=== PATIENT | male | born 1980 | race Caucasian/White ===

== ENCOUNTER 2021-01-25 15:35 | Emergency (ER) | payer OTHER ==
[~2021-01-25 15:35] MED LIST: Amoxicillin 500 MG Cap ONE
--- NOTE | 2021-01-25 15:46 | EDM.PDOC ---
ED HPI GENERAL MEDICAL PROBLEM - General Chief Complaint: General Stated Complaint: Sore Throat Time Seen by Provider: 01/25/21 15:35 Source of Information: Reports: Patient History Limitations: Reports: No Limitations - History of Present Illness INITIAL COMMENTS - FREE TEXT/NARRATIVE: Ankit is a 40 year old male presents to the ER with complaints of generalized malaise and a sore throat. States noted white patches on his tonsils earlier today. Has odynophagia. No fevers that he is aware. Doesn't feel well. Has sinus drainage but notes related to allergies as his chronic for him and takes Lexii every day. No ear pain, sinus pain, cough or chest congestion. Does note soreness to his lymph nodes. No covid exposure that he is aware of. Has been vaccinated. Onset: Today Duration: Hour(s):, Getting Worse Location: Reports: Generalized Quality: Reports: Ache Severity: Mild Associated Symptoms: Reports: Malaise. Denies: Confusion, Chest Pain, Cough, Fever/Chills, Loss of Appetite, Nausea/Vomiting, Shortness of Breath - Related Data Allergies Allergy/AdvReac Type Severity Reaction Status Date / Time No Known Allergies Allergy Verified 01/25/21 15:37 Home Meds: Home Meds . [No Known Home Meds] 01/25/21 [History] Social & Family History - Tobacco Use Tobacco Use Status *Q: Unknown Ever Used Tobacco ED ROS GENERAL - Review of Systems Review Of Systems: See Below Constitutional: Reports: Chills, Malaise. Denies: Fever, Weakness, Fatigue, Decreased Appetite HEENT: Reports: Rhinitis, Throat Pain. Denies: Ear Pain, Vertigo Respiratory: Denies: Shortness of Breath, Cough Cardiovascular: Denies: Chest Pain, Edema, Lightheadedness Endocrine: Denies: Fatigue GI/Abdominal: Denies: Abdominal Pain, Nausea, Vomiting : Reports: No Symptoms Musculoskeletal: Reports: No Symptoms Skin: Reports: No Symptoms Neurological: Reports: No Symptoms Psychiatric: Reports: No Symptoms ED EXAM, GENERAL - Physical Exam Exam: See Below Exam Limited By: No Limitations General Appearance: Alert, WD/WN, No Apparent Distress Ears: Normal External Exam, Normal TMs Nose: Normal Inspection, Normal Mucosa, No Blood Throat/Mouth: Other (posterior pharynx is red with white patchy exudate) Head: Normocephalic Neck: Normal Inspection, Supple, Lymphadenopathy (L), Lymphadenopathy (R) Respiratory/Chest: No Respiratory Distress, Lungs Clear, Normal Breath Sounds Cardiovascular: Regular Rate, Rhythm GI/Abdominal: Normal Bowel Sounds, Soft, Non-Tender Extremities: Normal Inspection, No Pedal Edema Neurological: Alert, Oriented Skin Exam: Warm, Dry Departure - Departure Time of Disposition: 15:47 Disposition: Home, Self-Care 01 Condition: Good Clinical Impression: Acute pharyngitis - Discharge Information *PRESCRIPTION DRUG MONITORING PROGRAM REVIEWED*: No *COPY OF PRESCRIPTION DRUG MONITORING REPORT IN PATIENT [place]: No Instructions: Pharyngitis, [id number] Additional Instructions: 1. Push fluids 2. Alternate tylenol with ibuprofen for discomfort 3. Amoxicillin 875 mg BID for 10 days 4. Follow up if persisting concerns.
[2021-01-25] MEDS: Take Home: Amoxicillin 500 MG Cap, 2 Cap Pack PO ONE (16:01)
== END 2021-01-25 16:05 | disposition home or self-care (01) ==
LOC: CC.ED 15:35
DX: J02.9 Acute pharyngitis, unspecified (principal)
CPT/HCPCS: 99283; A9270-GY